=== PATIENT | male | born 1980 | race Caucasian/White ===

== ENCOUNTER 2019-12-27 20:04 | Emergency (ER) | payer BC, MEDICAID ==
--- NOTE | 2019-12-27 21:17 | UC ---
FLU HPI - HPI Summary HPI Summary: 39 y/o male presents to the urgent care accompany by mother c/o fatigue, body aches, BENEDICT, joint pains, fever and mild sore throat since yesterday. This afternoon, he developed fever of 102F. He took Nyquill PO and symptoms improved. Pain is 5/10 specially body aches. He has been eating well and drinking fluids. Pt's mother reports he had a tick bite over thanksgiving w/o any prophylactic treatment. She is concerned about Lyme. Pt denies dizziness, neck pain, rash, SOB, cough, wheezing, chest pain, abdominal pain, N/V/d. Last dose of Nyquill PO was about 2 hrs ago. - History of Current Complaint Chief Complaint: UCGeneralIllness Stated Complaint: FLU SYMPTOMS Time Seen by Provider: 12/27/19 21:16 Hx Obtained From: Patient Onset/Duration: Gradual Onset Severity Currently: Mild Severity Initially: Moderate Pain Intensity: 5 - body aches and BENEDICT Pain Scale Used: 0-10 Numeric Associated Signs & Symptoms: Positive: Fever, T Max - 102F this afternoon, Myalgia, Sore Throat - mild, Nasal Congestion - clear, Headache Related Hx: Possible Flu/Infectious Exposure - Allergy/Home Medications Allergies/Adverse Reactions: Allergies Allergy/AdvReac Type Severity Reaction Status Date / Time No Known Allergies Allergy Verified 12/27/19 20:53 Home Medications: Home Medications D-Methorphan/PE/Acetaminophen [Vicks Dayquil Liquicaps] 2 each PO PRN 12/27/19 [ History] PMH/Surg Hx/FS Hx/Imm Hx Previously Healthy: Yes - Pt denies PMHX - Surgical History Surgical History: Yes Surgery Procedure, Year, and Place: RIGHT ANKLE SURGERY - Family History Family History: dyslipidemia - Social History Occupation: Employed Full-time Lives: With Family Alcohol Use: Occasionally Substance Use Type: None Smoking Status (MU): Former Smoker Amount Used/How Often: 1 PPD OFF AND ON 8-9 YEARS When Did the Patient Quit Smoking/Using Tobacco: 7-8 YEARS AGO Review of Systems All Other Systems Reviewed And Are Negative: Yes Constitutional: Positive: Fever, Chills, Fatigue, Other - body aches Skin: Positive: Negative Eyes: Positive: Negative ENT: Positive: Sore Throat - mild, Nasal Discharge - clear, Sinus Congestion Respiratory: Positive: Negative Cardiovascular: Positive: Negative Gastrointestinal: Positive: Negative Genitourinary: Positive: Negative Motor: Positive: Negative Neurovascular: Positive: Negative Musculoskeletal: Positive: Myalgia Neurological: Positive: Headache Psychological: Positive: Negative Is Patient Immunocompromised?: No Physical Exam - Summary Physical Exam Summary: VITAL SIGNS: Reviewed. GENERAL: Patient is a well developed and nourished male who is sitting comfortably in the examining table. Patient is not in any acute respiratory distress. HEAD AND FACE: No signs of trauma. No ecchymosis, hematomas or skull depressions. No sinus tenderness. EYES: PERRLA, EOMI x 2, No injected conjunctiva, no nystagmus. No photophobia. EARS: Hearing grossly intact. Ear canals and tympanic membranes are within normal limits. MOUTH: Positive pharynx with mild erythema, no exudates, No B/L tonsillar enlargement , no exudate. Uvula in midline. edematous nasal mucosa w/ clear nasal discharge, clear PND NECK: Supple, trachea is midline, Positive anterior cervical lymphadenopathy, no JVD, no carotid bruit, no c-spine tenderness, neck with full ROM. No meningeal signs, no Kernig's or brudzinskis signs. CHEST: Symmetric, no tenderness at palpation LUNGS: Clear to auscultation bilaterally. No wheezing or crackles. CVS: Regular rate and rhythm, S1 and S2 present, no murmurs or gallops appreciated. ABDOMEN: Soft, non-tender. No signs of distention. No rebound no guarding, and no masses palpated. Bowel sounds are normal. EXTREMITIES: FROM in all major joints, no edema, no cyanosis or clubbing. NEURO: Alert and oriented x 3. No acute neurological deficits. Pt follows commands. SKIN: Dry and warm Triage Information Reviewed: Yes Vital Signs: Initial Vital Signs Temp 99.2 F 12/27/19 20:49 Pulse 119 12/27/19 20:49 Resp 20 12/27/19 20:49 BP 120/84 12/27/19 20:49 Pulse Ox 100 12/27/19 20:49 Flu Course/Dx - Course Course Of Treatment: 39 y/o male presents to the urgent care accompany by mother c/o fatigue, body aches, BENEDICT, joint pains, fever and mild sore throat since yesterday. This afternoon, he developed fever of 102F. He took Nyquill PO and symptoms improved. Pain is 5/10 specially body aches. He has been eating well and drinking fluids. Pt's mother reports he had a tick bite over thanksgiving w/o any prophylactic treatment. She is concerned about Lyme. Pt denies dizziness, neck pain, rash, SOB, cough, wheezing, chest pain, abdominal pain, N/V/d. Last dose of Nyquill PO was about 2 hrs ago. Hx obtained. Rapid Strep: positive. Influenza A&B: negative. Strep pharyngitis. Pt's mother concerned w/ Lyme since he had a tick bite on RT axilla on thanks given and didn 't have prophylactic treatment. Pt Rx Amoxicillin PO. Ibuprofen PO and first dose of Amoxicillin PO given at the clinic by the nurse. Pt tolerated well medication. Lyme serology and CBC ordered and sent to lab. Pt will be notified of any abnormality for further management. Also given referral w/ DR Lopez if need. Also advised to rest, eat well and avoid strenuous exercise. If symptoms do not improve or worsen advised to return to the urgent care or f/u with his PCP in 2-3 days for further evaluation and treatment. D/C instructions explained. Mother and PT understood and agreed w/ plan of care. - Differential Dx/Diagnosis Differential Diagnosis/HQI/PQRI: Bronchitis, Influenza, Pneumonia, Upper Respiratory Infection Provider Diagnosis: Strep pharyngitis, Fever Discharge ED - Sign-Out/Discharge Documenting (check all that apply): Patient Departure - D/C home All imaging exams completed and their final reports reviewed: No Studies - Discharge Plan Condition: Stable Disposition: HOME Prescriptions: Amoxicillin PO (*) [Amoxicillin 500 MG CAP*] 500 mg PO Q12H #20 cap Patient Education Materials: Strep Throat (ED) Referrals: Jessy Kuhn MD [Primary Care Provider] - 2 Days Austen SALCIDO,Malik Canchola [Medical Doctor] - Additional Instructions: 1- Please take the full course of the antibiotic to avoid resistance.Take yogurts w/ probiotics or Culturelle to protect your GI system. First dose given today at the clinic 2-Please take ibuprofen PO q6-8hrs prn as instructed after meals to alleviate pain and swelling. Increase fluid intake, eat well, rest and avoid strenuous exercise 3-If symptoms do not improve or worsen please return to the urgent care or f/u with your PCP for further evaluation and treatment. 4- Since concerned w/ lyme due to tick bite. CBC and Lyme serology ordered. You will be notified of any abnormality for further management. Please f/u w/ DR Lopez if Lyme serology is positive for further management. - Billing Disposition and Condition Condition: STABLE Disposition: Home
[2019-12-27] MEDS ORDERED: Ibuprofen TAB* 400 MG PO ONE (21:40)
[2019-12-27 21:59] LABS: Influenza A Molecular NEGATIVE (Negative); Influenza B Molecular NEGATIVE (Negative)
[2019-12-27] MEDS ORDERED: Amoxicillin PO (*) 500 MG CAP PO ONE (22:26)
[2019-12-27 22:45] VITALS: BP 118/83
[2019-12-28 11:29] LABS: Hematocrit 41 % (42-52); Mean Corpuscular HGB Conc 35 g/dL (31-36); Mean Corpuscular Hemoglobin 31 pg (27-31); Mean Corpuscular Volume 89 fL (80-94); Mean Platelet Volume 7.6 fL (7.4-10.4); Platelet Count 222 10^3/uL (150-450); Red Blood Count 4.57 10^6 /uL (4.18-5.48); Red Cell Distribution Width 14 % (10-15)
[2019-12-28 12:36] LABS: ABS Lymphocytes 1.1 10^3/ul (1.0-4.8); ABS Monocytes 0.7 10^3/ul (0-0.8); ABS Neutrophils 6.2 10^3/ul (1.5-7.7); Eosinophil % 0.1 %; Lymphocyte % 13.5 %; Nucleated Red Blood Cells % 0.1
== END 2019-12-27 22:34 | disposition home or self-care (01) ==
LOC: UCEAST 20:04
DX: J02.0 Streptococcal pharyngitis (principal); R50.9 Fever, unspecified; M79.10 Myalgia, unspecified site; R09.89 Other specified symptoms and signs involving the circulatory and respiratory systems; R53.83 Other fatigue
CPT/HCPCS: 36415; 85025; 85060; 86618; 87651; 99202; A9270-GY; G0463